=== PATIENT | female | born 2000 | race Caucasian/White ===

== ENCOUNTER 2024-10-09 08:19 | Emergency (ER) | payer SELFPAY ==
[2024-10-09 08:33] VITALS: BP 91/63
--- NOTE | 2024-10-09 10:08 | ED.GENMED ---
History of Present Illness
General
Chief Complaint: Musculo-Skeletal Complaint
Time Seen by Provider: 10/09/24 09:57
History of Present Illness
History of Present Illness:
24-year-old female presents to the emergency department for evaluation of right foot pain after falling down the stairs last night, she is able to bear weight slightly on the foot. Moderate amount of bruising to the lateral midfoot. Denies any
other injuries or pain
Past History
Past History
ED Past Medical History: Other (migraines. Currently under care of neurology)
ED Past Surgical History: None
Patient has exhibited threatening behavior?: No
Social History
Living: with family
Employment: Employed
Review of Systems
Review of Systems
Allergies reviewed?: Yes
All Other Systems: ROS reviewed and negative except as documented in HPI and ROS
Phy Exam
Physical Exam
Physical Exam:
GEN: Well appearing, NAD, WDWN
HEENT: Oral mucosa moist, no scleral icterus
Cardiac: Regular rate
Lung: No respiratory distress, no tachypnea
MSK: Moderate ecchymosis and swelling to the right lateral midfoot, tenderness along the fifth metatarsal, no bony tenderness to the ankle, no ankle effusion
Skin: Good color, no pallor or jaundice, no rashes
Neuro: AO x3, moves all extremities freely
Psych: Calm, cooperative
Course
Orders/Labs/Results
Orders:
Orders
10/09/24 08:59
CR Foot - Right Min 3 Views Urgent
Comment:
Reason For Exam: pain, injury
10/09/24 10:21
Acetaminophen [Tylenol] 650 mg .ROUTE .STK-MED ONE
10/09/24 10:23
Acetaminophen [Tylenol] 650 mg PO NOW STA
Vital Signs
Initial and Last Documented VS:
Initial Vital Signs
Temp Pulse BP Pulse Ox
97.5 F 84 91/63 98
10/09/24 08:33 10/09/24 08:33 10/09/24 08:33 10/09/24 08:33
Last Documented Vital Signs
Temp Pulse Resp BP Pulse Ox
97.5 F 64 18 111/65 97
10/09/24 08:33 10/09/24 10:16 10/09/24 10:16 10/09/24 10:16 10/09/24 10:24
MDM/Problems Addressed
MDM/Problems Addressed:
X-rays independently interpreted by me reveal an oblique minimally displaced fracture to the fifth metatarsal. Will place in an orthopedic boot, weightbearing as tolerated with outpatient orthopedic follow-up
*Pulse Oximetry
SaO2: 98
Oxygen Mode of Delivery: Room air
Patient hypoxic: no
*Critical Care Note
Total Time (30-74mins, 75-104mins- exclusive of procedures): Not Applicable
ED Attending Note
-
Portions of this chart may have been created with voice recognition software.� Occasional wrong word or��sound alike� substitutions may have occurred due to the inherent limitations of voice recognition software.
Discharge Plan
Departure
Patient Disposition: Home (Routine Discharge)
Date of Disposition: 10/09/24
Time of Disposition: 10:10
Patient with high blood pressure during this ER visit?: No
Discharge Problem:
Fracture of fifth metatarsal bone of right foot
Instructions: Foot Fracture ED
Prescriptions:
No Action
Unobtainable
0
Referrals:
Oscar Herbert MD [Active, Orthopedics]
Stand Alone Forms: Return to Work
Interventions
Interventions:
*Risk Screen - Suicide Last Done: 10/09/24 08:57
*General Assessment Last Done: 10/09/24 08:57
*Neglect/Abuse Screening Last Done: 10/09/24 08:57
*ED- Fall Risk Assessment Last Done: 10/09/24 10:24
*ED COVID-19 Vaccine History Last Done: 10/09/24 08:57
*Nursing Disposition Last Done: 10/09/24 10:24
ED-Musculoskeletal Assessment Last Done: 10/09/24 10:18
Discharge Date and Time
Discharge Date/Time: 10/09/24 10:25
Print Language: [place]
[2024-10-09 10:16] VITALS: BP 111/65
[2024-10-09] MEDS: TYLENOL 650 MG PO (10:23)
== END 2024-10-09 10:25 | disposition home or self-care (01) ==
LOC: EMR 08:19
PROVIDERS: EMERGENCY PHYSICIAN Emergency Medicine
DX: S92.351A Displaced fracture of fifth metatarsal bone, right foot, initial encounter for closed fracture (principal); W10.9XXA Fall (on) (from) unspecified stairs and steps, initial encounter
CPT/HCPCS: 99283; 73630